=== PATIENT | male | born 2000 | race Caucasian/White ===

== ENCOUNTER 2023-03-19 08:57 | Emergency (ER) | payer SELFPAY ==
[~2023-03-19] VITALS: Ht 180.3 cm; Wt 106.8 kg
[2023-03-19] MEDS ORDERED: IBUPROFEN 600 MG TAB PO STA (09:45)
[2023-03-19] MEDS ORDERED: IBUPROFEN 600 MG TAB ONE (10:03)
[2023-03-19] MEDS ORDERED: MELOXICAM7.5 MG PO (10:12)
[2023-03-19] MEDS ORDERED: ULTRAM 50MG50 MG PO (10:12)
== END 2023-03-19 10:59 | disposition home or self-care (01) ==
LOC: FSED 09:12
DX: M25.522 Pain in left elbow (principal); X50.1XXA Overexertion from prolonged static or awkward postures, initial encounter; Y92.89 Other specified places as the place of occurrence of the external cause; F17.210 Nicotine dependence, cigarettes, uncomplicated
CPT/HCPCS: 99283